=== PATIENT | female | born 1955 | race Caucasian/White ===

== ENCOUNTER → 2017-10-05 | Outpatient (CLI) | payer BC | LOC: MC.RAD 15:19 | DX: Z12.31 Encounter for screening mammogram for malignant neoplasm of breast (principal) ==

== ENCOUNTER → 2018-10-09 | Outpatient (CLI) | payer BC | LOC: MC.RAD 09:20 | DX: Z12.31 Encounter for screening mammogram for malignant neoplasm of breast (principal) ==

== ENCOUNTER → 2019-10-10 | Outpatient (CLI) | payer OTHER | LOC: MC.RAD 15:00 | DX: Z12.31 Encounter for screening mammogram for malignant neoplasm of breast (principal) ==

== ENCOUNTER → 2021-05-12 | Outpatient (CLI) | payer MEDICARE | LOC: MC.RAD 10:15 | DX: Z12.31 Encounter for screening mammogram for malignant neoplasm of breast (principal) ==

== ENCOUNTER → 2022-05-21 | Outpatient (CLI) | payer MEDICARE | LOC: MC.RAD 13:04 | DX: Z12.31 Encounter for screening mammogram for malignant neoplasm of breast (principal); N64.89 Other specified disorders of breast ==

== ENCOUNTER → 2022-05-27 | Outpatient (CLI) | payer MEDICARE | LOC: MC.RAD 09:51 | DX: R92.8 Other abnormal and inconclusive findings on diagnostic imaging of breast (principal); N64.89 Other specified disorders of breast ==

== ENCOUNTER → 2023-08-02 | Outpatient (CLI) | payer MEDICARE | LOC: MC.RAD 10:47 | DX: Z12.31 Encounter for screening mammogram for malignant neoplasm of breast (principal); N64.89 Other specified disorders of breast ==

== ENCOUNTER → 2024-08-08 | Outpatient (CLI) | payer MEDICARE | LOC: MC.RAD 13:39 | DX: Z12.31 Encounter for screening mammogram for malignant neoplasm of breast (principal) ==

== ENCOUNTER 2024-09-12 01:27 | Emergency (ER) | payer MEDICARE ==
[~2024-09-12] VITALS: Ht 160 cm; Wt 81.8 kg
[2024-09-12 01:45] VITALS: TEMP 97.7
[2024-09-12] MEDS ORDERED: Ondansetron 4 MG/2 ML VIAL IV ONE (02:00)
[2024-09-12] MEDS ORDERED: Morphine 4 MG/ML VIAL IV ONE (02:00)
[2024-09-12 02:21] LABS: BASO # 0.1 K/mm3 (0.0-0.2); BASO % 0.7 % (0.0-2.0); EOS % 0.3 % (0.0-4.0); GRAN # 11.6 K/mm3 (1.4-6.5); GRAN % 84.5 % (42.2-75.2); HEMATOCRIT 45.8 % (37.0-47.0); HEMOGLOBIN 15.1 g/dl (12.5-16.0); LYMPH # 1.1 K/mm3 (1.2-3.4); LYMPH % 8.2 % (20.0-51.0); MEAN CELL VOLUME 92 fl (80.0-100.0); MEAN CORPUSCULAR HEMOGLOBIN 30 pg (27-31); MEAN CORPUSCULAR HGB CONC 33 g/dl (33.0-37.0); MONO # 0.8 K/mm3 (0.1-0.6); MONO % 6.1 % (1.7-9.3); PLATELET COUNT 209 K/mm3 (130-400); RED BLOOD COUNT 4.99 M/mm3 (4.10-5.30); REDCELL DISTRIBUTION WIDTH-CV 13.1 % (11.5-14.5)
[2024-09-12 02:41] LABS: ALBUMIN 3.7 g/dL (3.4-4.8); BILIRUBIN,TOTAL 0.7 mg/dL (0.2-1.2); CALCIUM 9.1 mg/dL (8.4-10.2); CREATININE, serum 1.02 mg/dL (0.57-1.11); POTASSIUM 3.9 mEq/L (3.5-4.5); TOTAL PROTEIN 7.8 g/dl (6.2-8.1)
[2024-09-12] MEDS ORDERED: Iohexol 300 - 100 ML VIAL IV ONE (02:57)
[2024-09-12] MEDS ORDERED: NS 50 ML IV ONE (03:01)
[2024-09-12 03:24] LABS: COLLECTION METHOD CLEAN CATCH
[2024-09-12 03:40] LABS: PH 7.5 (5.0-8.5); URINE APPEARANCE CLEAR (CLEAR/HAZY); URINE BLOOD TRACE (NEGATIVE); URINE COLOR YELLOW (YELLOW); URINE GLUCOSE TRACE (NEGATIVE); URINE KETONE 1+ (NEGATIVE); URINE NITRATE NEGATIVE (NEGATIVE); URINE PROTEIN(semi-quant) NEGATIVE (NEGATIVE); URINE UROBILINOGEN 0.2 E.U/dL (0.2-1.0)
[2024-09-12] MEDS ORDERED: Home HYDROcodone/Acetaminophen 5/325 MG #4 TABS/PACK PO ONE (04:30)
[2024-09-12 04:39] VITALS: BP 144/77; PULSE 101
== END 2024-09-12 04:40 | disposition home or self-care (01) ==
LOC: COL.ER 01:27
PROVIDERS: Emergency Medicine
DX: N20.1 Calculus of ureter (principal)
CPT/HCPCS: J2270; J2405; Q9967

== ENCOUNTER 2024-09-14 13:58 | Day surgery (SDC) | payer MEDICARE ==
[~2024-09-14] VITALS: Ht 160 cm; Wt 80.8 kg
[2024-09-14] VITALS (8 sets, daily range): BP systolic 133–166; BP diastolic 55–81; PULSE 66–97; TEMP 97.6–98.2
[~2024-09-14 13:58] MED LIST: LR 1,000 ML IV SCH
[2024-09-14] MEDS ORDERED: PRILOTC PO (14:36)
[2024-09-14] MEDS ORDERED: TOPROL XL 25MG25 MG PO (14:36)
[2024-09-14] MEDS ORDERED: ESTRACE0.5 MG PO (14:37)
[2024-09-14] MEDS ORDERED: LEVOXYL0.088 MG PO (14:37)
[2024-09-14] MEDS ORDERED: SINGULAIR 110 MG/TAB PO (14:38)
[2024-09-14] MEDS ORDERED: PRINIVIL10 MG PO (14:38)
[2024-09-14] MEDS ORDERED: MEVACOR40 MG PO (14:38)
[2024-09-14] MEDS ORDERED: CALCIUM 600MG+D1 TAB PO (14:39)
[2024-09-14] MEDS ORDERED: GLUCOSAMINE & C1 TAB PO (14:39)
[2024-09-14] MEDS ORDERED: MULTIPLE VITAMI1 CAP PO (14:40)
[2024-09-14] MEDS ORDERED: Ondansetron 4 MG/2 ML VIAL ONE (15:34)
[2024-09-14] MEDS ORDERED: dexAMETHasone 10 MG/ML VIAL ONE (15:34)
[2024-09-14] MEDS ORDERED: Lidocaine PF 2% (20 MG/ML) 5 ML VIAL ONE (15:34)
[2024-09-14] MEDS ORDERED: fentaNYL 50 MCG/ML 2 ML VIAL ONE (15:35)
[2024-09-14] MEDS ORDERED: fentaNYL 50 MCG/ML 1 ML SYRINGE/VIAL [PACU/SDC ONLY] IV PRN (15:45)
[2024-09-14] MEDS ORDERED: hydrALAZINE 20 MG/ML 1 ML VIAL IV PRN (15:45)
[2024-09-14] MEDS ORDERED: HYDROmorphone 1 MG/1 ML SYRINGE [PACU/SDC ONLY] IV PRN (15:45)
[2024-09-14] MEDS ORDERED: Meperidine 50 MG/ML 1 ML VIAL IV PRN (15:45)
[2024-09-14] MEDS ORDERED: Ketorolac 15 MG/ML VIAL IV PRN (15:45)
[2024-09-14] MEDS ORDERED: Ondansetron 4 MG/2 ML VIAL IV PRN ×2 (15:45→16:30)
[2024-09-14] MEDS ORDERED: Naloxone 0.4 MG/ML VIAL IV PRN (16:30)
[2024-09-14] MEDS ORDERED: Morphine 4 MG/ML VIAL IV PRN (16:30)
[2024-09-14] MEDS ORDERED: Hyoscyamine 0.125 MG Sublingual TAB SL PRN (16:30)
[2024-09-14] MEDS ORDERED: Acetaminophen 325 MG TAB PO PRN (16:30)
[2024-09-14] MEDS ORDERED: oxyCODONE 5 MG TAB PO PRN (16:30)
[2024-09-14] MEDS ORDERED: ePHEDrine 50 MG/ML VIAL ONE (16:34)
[2024-09-14] MEDS ORDERED: Lidocaine 2% (20 MG/ML) 20 ML UROJET UR ONE (16:45)
[2024-09-14] MEDS ORDERED: Iohexol 350 - 100 ML VIAL URETER -L ONE (16:45)
[2024-09-14] MEDS ORDERED: Acetaminophen 500 MG TAB PO SCH (17:20)
--- NOTE | 2024-09-14 17:30 | NUR ---
Patient arrived to the surgical unit [id number] by bed, alert and oriented x4, getting 2L O2 NC sat 92% Post op started.
--- NOTE | 2024-09-14 19:45 | NUR ---
pt eating and drinking, no N/V, has ambulated to restroom and voided, VSS on RA, mild discomfort reported. discharge instructions given, IV in left hand dc'd. pt taken to ER exit for discharge per WC accompanied by spouse and PCT with belongings.
== END 2024-09-14 19:45 | disposition home or self-care (01) ==
LOC: SDCO 13:58 → SURG 17:51 → SDCO 19:45
DX: N20.1 Calculus of ureter (principal); K21.9 Gastro-esophageal reflux disease without esophagitis; Z79.899 Other long term (current) drug therapy; Z87.891 Personal history of nicotine dependence
CPT/HCPCS: OP; C1769; C2617; J0690; J1100; J2405; J2704; J3010; J7120; Q9967